=== PATIENT | female | born 1985 ===

== ENCOUNTER → 2018-05-13 | Outpatient (CLI) | payer OTHER | END | disposition home or self-care (01) | LOC: MRI 09:15 → RAD 09:24 | DX: R10.2 Pelvic and perineal pain (principal) ==

== ENCOUNTER 2019-01-14 14:45 | Inpatient (IN) | payer OTHER ==
[~2019-01-14] VITALS: Ht 162.6 cm; Wt 75.3 kg
[2019-02-04] MEDS ORDERED: ATABEX DHA 200200 MG (08:15)
== END 2019-02-06 13:27 | disposition home or self-care (01) | DRG 807 ==
LOC: EDSTATUS 14:45 → ADM 14:45 → LDR 02-03 06:04 → OB/GYN 02-03 06:04
PROVIDERS: ADMIT Obstetrics & Gynecology
PROC: 3E033VJ Introduction of Other Hormone into Peripheral Vein, Percutaneous Approach (ICD-10-PCS; 2019-02-03)
PROC: 4A1HXCZ Monitoring of Products of Conception, Cardiac Rate, External Approach (ICD-10-PCS; 2019-02-03)
PROC: 10E0XZZ Delivery of Products of Conception, External Approach (ICD-10-PCS; principal; 2019-02-04)
PROC: 0W8NXZZ Division of Female Perineum, External Approach (ICD-10-PCS; 2019-02-04)
DX: O80 Encounter for full-term uncomplicated delivery (principal); Z37.0 Single live birth; Z3A.39 39 weeks gestation of pregnancy

== ENCOUNTER → 2020-03-22 | Outpatient (CLI) | payer OTHER ==
[~2020-03-22] MED LIST: ATABEX DHA 200200 MG
== END | disposition home or self-care (01) ==
LOC: PRENATAL 13:33
PROVIDERS: ATTEND Obstetrics & Gynecology Maternal & Fetal Medicine
DX: O35.0XX1 Maternal care for (suspected) central nervous system malformation in fetus, fetus 1 (principal); O35.3XX1 Maternal care for (suspected) damage to fetus from viral disease in mother, fetus 1; O98.512 Other viral diseases complicating pregnancy, second trimester; Z3A.20 20 weeks gestation of pregnancy

== ENCOUNTER 2020-08-03 06:46 | Inpatient (IN) | payer OTHER ==
[~2020-08-03] VITALS: Ht 162.6 cm; Wt 73.5 kg
[2020-08-03] MEDS ORDERED: PRENATAL TABLE1 EAC1 PO (07:47)
== END 2020-08-05 12:37 | disposition home or self-care (01) | DRG 807 ==
LOC: OB/GYN 06:46 → LDR 06:46 → OB/GYN 23:28
PROVIDERS: ADMIT Obstetrics & Gynecology; ATTEND Obstetrics & Gynecology
PROC: 10E0XZZ Delivery of Products of Conception, External Approach (ICD-10-PCS; principal; 2020-08-03)
PROC: 10907ZC Drainage of Amniotic Fluid, Therapeutic from Products of Conception, Via Natural or Artificial Opening (ICD-10-PCS; 2020-08-03)
PROC: 4A1HXFZ Monitoring of Products of Conception, Cardiac Rhythm, External Approach (ICD-10-PCS; 2020-08-03)
DX: O80 Encounter for full-term uncomplicated delivery (principal); Z37.0 Single live birth; Z3A.39 39 weeks gestation of pregnancy; Z20.822 Contact with and (suspected) exposure to COVID-19